=== PATIENT | male | born 1960 | race Caucasian/White ===

== ENCOUNTER → 2021-09-04 | Outpatient (CLI) | payer OTHER ==
[~2021-09-04] MED LIST: IOHEXOL 300 MG/ML 75 ML VIAL. IV ONE
--- NOTE | 2021-09-04 10:52 | RAD ---
EXAM: Abdomen and pelvis CT with intravenous contrast. HISTORY: Prostate cancer. TECHNIQUE: Computed tomographic images of the abdomen and pelvis were obtained following the administ ration of intravenous contrast. Multiplanar reformatting was performed. *One or more of the following individualized dose reduction techniques were utilized for this examina tion: 1. Automated exposure control. 2. Adjustment of the mA and/or kV according to patient size. 3. Use of iterative reconstruction technique. COMPARISON: None. FINDINGS: Evaluation of the lower thorax demonstrates no infiltrate, pleural effusion or suspicious p ulmonary nodule. The heart is normal in size. There is hepatomegaly and hepatic steatosis. No suspici ous hepatic lesion is seen. There is cholelithiasis. The pancreas is unremarkable. There is mild sple nomegaly. There is a splenule adjacent to the spleen. The stomach is unremarkable. The adrenal glands are unremarkable. There is a 2 mm nonobstructing stone within the lower pole the left kidney. There is no appendicitis. There is a moderate amount of stool throughout the colon. There is distal c olonic diverticulosis. There is no diverticulitis. There is no bowel obstruction. The urinary bladder is unremarkable. The aorta is normal in caliber. There are nonspecific mesenteric, retroperitoneal a nd inguinal lymph nodes. These are not pathologically enlarged. There is a tiny fat-containing umbili dominga hernia. There are few small sclerotic lesions within the bony pelvis and spine, the appearance of which favors bone islands. There is instrumented posterior spinal fusion with disc space fusion onel ce placement at L4-L5. There are degenerative changes throughout the spine. IMPRESSION: 1. No acute finding or convincing evidence of metastatic disease. 2. Hepatomegaly and hepatic steatosis. 3. Mild splenomegaly. 4. Colonic diverticulosis. 5. Tiny nonobstructing left renal stone. 6. Tiny fat-containing umbilical hernia. 7. Degenerative and postoperative change involving the lumbar spine. Electronically signed by: Brissa Hebert MD (09/04/2021 10:50 AM) [id number]
--- NOTE | 2021-09-04 12:52 | RAD ---
EXAM: Nuclear bone scan. HISTORY: Prostate cancer. COMPARISON: CT obtained on the same date. TECHNIQUE: Following the intravenous injection of 26 mCi of Tc 99m labeled methylene diphosphonate (M DP), whole body imaging was performed. FINDINGS: There is suspected degenerative radiotracer activity involving both shoulders, sternoclavic ular joints and first costochondral junctions, bilateral wrists and hands and right greater than left knees. There is asymmetric increased activity overlying the left superior pubic ramus which demonstr ates no correlate on the recent CT exam, favoring a physiologic etiology. There is increased tracer a ctivity involving the anterior neck which is related to overlying soft tissues and not typical in hilda earance for osseous metastatic disease. IMPRESSION: No convincing osseous metastatic disease. There are multiple areas of suspected degenerat todd radiotracer activity within the axial and appendicular skeleton. Electronically signed by: Brissa Hebert MD (09/04/2021 12:50 PM) [id number]
== END ==
LOC: NM 08:05
PROVIDERS: ATTEND Urology
DX: C61 Malignant neoplasm of prostate (principal); K76.0 Fatty (change of) liver, not elsewhere classified; K57.30 Diverticulosis of large intestine without perforation or abscess without bleeding; K42.9 Umbilical hernia without obstruction or gangrene; N20.0 Calculus of kidney; R16.2 Hepatomegaly with splenomegaly, not elsewhere classified
CPT/HCPCS: 74177; 78306; A9503; Q9967